=== PATIENT | female | born 1965 | race Caucasian/White ===

== ENCOUNTER 2016-10-12 06:37 | Day surgery (SDC) | payer OTHER ==
[~2016-10-12 06:37] MED LIST: LIDOCAINE 1% 2 ML INJ ONE
[2016-10-12] MEDS ORDERED: LIDO/EPI 1% **Not for Epidural 20 ML MDV ONE (06:45)
[2016-10-12] MEDS ORDERED: ONDANSETRON 4 MG/2 ML VIAL ONE (07:58)
[2016-10-12] MEDS ORDERED: LIDOCAINE 2% 100 MG/5 ML SYR ONE (07:58)
[2016-10-12] MEDS ORDERED: KETOROLAC 30 MG/1 ML SDV ONE (07:58)
[2016-10-12] MEDS ORDERED: ROCURONIUM 100 MG/10 ML VIAL ONE (07:58)
[2016-10-12] MEDS ORDERED: fentaNYL 100 MCG/2 ML INJ ONE ×2 (07:59→09:10)
[2016-10-12] MEDS ORDERED: PROPOFOL 200 MG/20 ML VIAL ONE ×2 (07:59)
[2016-10-12] MEDS ORDERED: MIDAZOLAM 2 MG/2 ML VIAL ONE (08:08)
--- NOTE | 2016-10-12 12:56 | GOP ---
[f rep st] OPERATIVE REPORT DATE OF OPERATION: 10/12/2016 SURGEON: Marleny Partida MD ANESTHESIA: General with LMA. PREOPERATIVE DIAGNOSIS: 1. Dysfunctional uterine bleeding. 2. Very thick endometrial stripe with likely submucosal fibroid. POSTOPERATIVE DIAGNOSIS: 1. Dysfunctional uterine bleeding. 2. Very thick endometrial stripe with likely submucosal fibroid. PROCEDURE PERFORMED: Hysteroscopic evaluation with hysteroscopic morcellation of fibroid and hyster oscopic dilatation and curettage. FINDINGS: There is a moderate-sized submucosal fibroid originating from the posterior wall of the u terus. Normal tubal ostia. There was a very small polyp in the right tubal ostia. INDICATIONS: Patient is a 51-year-old, who has had ongoing irregular bleeding for the past year kayy t has become more and more problematic and ultrasound done, and this showed a 1.6 cm endometrial thi ckness with what looks like a growth in the uterine cavity, consistent with fibroid. She also has s everal other fibroids in the myometrium. Rather than doing an office biopsy or a sonohysterogram, r ecommend hysteroscopic resection of the tissue for definitive therapy and diagnostic therapy. DESCRIPTION OF PROCEDURE: With informed consent signed, patient taken to the operative room, placed under general anesthesia, placed in the low dorsal lithotomy position, prepped and draped in the us ual sterile fashion. Bladder previously emptied. Tenaculum placed on the anterior of the cervix. Cervix dilated to 9 mm. Hysteroscope placed into the uterine cavity and [employer] r otary morcellator placed into the uterine cavity using the rotary blade, and resection of the tissue done, and then a general sweeping of all the endometrial tissue was done in a D and C like fashion, and then the tubal ostia polyp was also removed. Hemostasis was noted. The hysteroscope removed. Patient placed in the supine position, awakened in the operating room, taken to the recovery room i n stable condition. Tolerated the procedure well. Net fluid deficit was 150 cc. COMPLICATIONS: None. /[id number]/MODL
== END 2016-10-12 10:20 | disposition home health service (06) ==
LOC: FSGY 06:37
PROVIDERS: ATTEND Obstetrics & Gynecology Gynecology
PROC: 0UDB8ZX Extraction of Endometrium, Via Natural or Artificial Opening Endoscopic, Diagnostic (ICD-10-PCS; principal; 2016-10-12 08:15)
DX: D25.0 Submucous leiomyoma of uterus (principal); N84.0 Polyp of corpus uteri
CPT/HCPCS: 58558; C1782; J1885; J2001; J2250; J2405; J2704; J3010

== ENCOUNTER → 2018-08-20 | Outpatient (CLI) | payer OTHER | LOC: FIMAGING 10:23 | PROVIDERS: ATTEND Nurse Practitioner Adult Health | DX: Z12.31 Encounter for screening mammogram for malignant neoplasm of breast (principal) ==